=== PATIENT | female | born 1960 | race Caucasian/White ===

== ENCOUNTER 2018-06-27 14:16 | Emergency (ER) | payer OTHER ==
[2018-06-27 17:19] LABS: URINE BLOOD (Dip) POC 1+ (NEGATIVE); URINE GLUCOSE (Dip) POC Negative (NEGATIVE); URINE KETONES (Dip) POC Negative (NEGATIVE); URINE LEUKOCYTE EST (Dip) POC 1+ (NEGATIVE); URINE NITRITE (Dip) POC Negative (NEGATIVE); URINE TOTAL PROTEIN POC Trace (NEGATIVE)
[2018-06-27 17:19] LABS: URINE PH (Dip) POC 5.5 (5.0-8.5)
[2018-06-27] MEDS: LIDOCAINE/MYLANTA 40 ML BTL PO (17:20)
== END 2018-06-27 18:43 | disposition home or self-care (01) ==
LOC: FTE 14:16
DX: R19.7 Diarrhea, unspecified (principal); R10.9 Unspecified abdominal pain
CPT/HCPCS: 81003; 99283